=== PATIENT | male | born 1955 | race Caucasian/White ===

== ENCOUNTER → 2017-01-02 | Outpatient (CLI) | payer BC ==
[~2017-01-02] MED LIST: AMBIEN 10MG10 MG PO; ATIVAN2 MG PO; BUSPAR10 MG PO
== END ==
LOC: BHSO 10:49
DX: F33.2 Major depressive disorder, recurrent severe without psychotic features (principal)
CPT/HCPCS: 90791-AI

== ENCOUNTER → 2017-02-02 | Outpatient (CLI) | payer BC | LOC: BHSO 08:51 | DX: F43.10 Post-traumatic stress disorder, unspecified (principal) ==

== ENCOUNTER → 2017-04-04 | Outpatient (CLI) | payer BC | LOC: BHSO 09:00 | DX: F33.1 Major depressive disorder, recurrent, moderate (principal) ==

== ENCOUNTER → 2017-05-23 | Outpatient (CLI) | payer BC | LOC: BHSO 08:49 | DX: F43.10 Post-traumatic stress disorder, unspecified (principal) ==

== ENCOUNTER → 2017-07-20 | Outpatient (CLI) | payer BC | LOC: BHSO 08:43 | DX: F43.10 Post-traumatic stress disorder, unspecified (principal) | CPT/HCPCS: G0463 ==

== ENCOUNTER 2017-09-25 09:44 | Outpatient (RCR) | payer BC | END 2017-12-24 | disposition home or self-care (01) | LOC: WSST | DX: F03.90 Unspecified dementia, unspecified severity, without behavioral disturbance, psychotic disturbance, mood disturbance, and anxiety (principal) ==

== ENCOUNTER → 2017-10-04 | Outpatient (CLI) | payer BC | LOC: BHSO 09:51 | DX: F43.10 Post-traumatic stress disorder, unspecified (principal) | CPT/HCPCS: G0463 ==

== ENCOUNTER → 2017-10-23 | Outpatient (CLI) | payer BC | LOC: BHSO 08:57 | DX: F43.10 Post-traumatic stress disorder, unspecified (principal) | CPT/HCPCS: G0463 ==

== ENCOUNTER → 2018-01-10 | Outpatient (CLI) | payer BC | LOC: BHSO 10:12 | DX: F43.10 Post-traumatic stress disorder, unspecified (principal) | CPT/HCPCS: G0463 ==

== ENCOUNTER → 2018-03-18 | Outpatient (CLI) | payer BC | LOC: BHSO 08:02 | DX: F43.10 Post-traumatic stress disorder, unspecified (principal) | CPT/HCPCS: G0463 ==

== ENCOUNTER → 2018-06-17 | Outpatient (CLI) | payer BC | LOC: BHSO 08:06 | DX: F43.10 Post-traumatic stress disorder, unspecified (principal) | CPT/HCPCS: G0463 ==

== ENCOUNTER → 2018-08-13 | Outpatient (CLI) | payer BC | LOC: BHSO 08:01 | DX: F43.10 Post-traumatic stress disorder, unspecified (principal) | CPT/HCPCS: G0463 ==

== ENCOUNTER → 2018-09-12 | Outpatient (CLI) | payer BC | LOC: BHSO 08:11 | DX: F43.10 Post-traumatic stress disorder, unspecified (principal) | CPT/HCPCS: G0463 ==

== ENCOUNTER → 2018-10-17 | Outpatient (CLI) | payer BC | LOC: BHSO 08:03 | DX: F43.10 Post-traumatic stress disorder, unspecified (principal) | CPT/HCPCS: G0463 ==

== ENCOUNTER → 2018-12-19 | Outpatient (CLI) | payer BC | LOC: BHSO 08:31 | DX: F43.10 Post-traumatic stress disorder, unspecified (principal) | CPT/HCPCS: G0463 ==